=== PATIENT | male | born 1995 | race African-American/Black ===

== ENCOUNTER 2016-09-18 22:40 | Emergency (ER) | payer SELFPAY ==
[2016-09-18 23:14] LABS: ASCORBIC ACID (UR NOT ORDER) NEG (NEG); BILIRUBIN, URINE NEGATIVE (NEG); ER URINALYSIS TAT 0 Hrs 21 Mins; KETONE, URINE NEGATIVE (NEG); LEUKOCYTE ESTERASE(NOT OR TRACE (NEG); NITRITE (URINE) NEG (NEG); WBC (NOT ORDERED) (RFLEX) 6 (0-5)
[2016-09-19 00:48] LABS: SOURCE: MALE URINE
[2016-09-19 00:50] LABS: CHLAMYDIA TRACH PCR DETECTED (NOT DETEC); GC PCR NOT DETECTED (NOT DETECT)
== END 2016-09-18 23:50 | disposition home or self-care (01) ==
LOC: ER 22:40
PROVIDERS: Nurse Practitioner
DX: A74.9 Chlamydial infection, unspecified (principal); Z88.0 Allergy status to penicillin; Z88.1 Allergy status to other antibiotic agents
CPT/HCPCS: 81001; 87491; 87591; 96372; 99283; A9270-GY; J0696